=== PATIENT | female | born 1990 | race Caucasian/White ===

== ENCOUNTER 2024-08-31 09:22 | Emergency (ER) | payer OTHER, SELFPAY ==
[2024-08-31 09:33] VITALS: BP 127/89
[2024-08-31 10:08] VITALS: BMI 29.7
--- NOTE | 2024-08-31 10:08 | ED.GENMED ---
History of Present Illness
General
Chief Complaint: Heart Rate Problem
Source: patient
Exam Limitations: none
Time Seen by Provider: 08/31/24 09:47
Nursing documentation reviewed up to this point in time: agreed with
History of Present Illness
History of Present Illness:
pt is a 33 y/o F
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
here with elevated HR noticed last night around 9 pm
pt says she feels it racing and felt a little off/lightheaded throughout the night
sh edidn't sleep well
HR anywhere from 110-140
she says each time she'd almost fall asleep, she would jolt herself awake
pt had a little chest tighness throughotu the night
no pleuritic cp, sob, fever, infectious symptoms, cough, vomiting, diarrhea
no h/o thyroid disease
no anemia
no changes in diet
no recen tlong travel
no OCPs
lmp 2 weeks ago
is a single mother to 5 year old twins
Past History
Past History
ED Past Medical History: None and Other
ED Past Surgical History: None and Other
Social History
Tobacco: Smoker
Alcohol: None
Drug: None
Personal: Single
Living: with family
Employment: Employed
Review of Systems
Review of Systems
Allergies reviewed?: Yes
All Other Systems: Not applicable
Phy Exam
Physical Exam
Physical Exam:
GENERAL: Alert , in no apparent distress
EYE: pupils equal and reactive
NECK: Supple
ENT: o/p clr, mmm.
CARDIAC: Heart rate low 100s, no murmur, no edema
LUNGS: Clear breath sounds bilaterally, no acute respiratory distress, no wheezes/rales/rhonchi
ABDOMEN: Soft, without focal tenderness, no r/g, no cvat, normal bowel sounds
NEUROLOGICAL: Alert and oriented, no focal neuro deficits
SKIN: Warm and dry, skin intact.
MUSCULOSKELETAL: No edema, well perfused. neg jeri's sign
PSYCH: Normal and appropriate interaction.
Course
Orders/Labs/Results
Orders:
Orders
08/31/24
Electrocardiogram (*1) Stat
Reason for Study: Chest Pain
Comment: already done
08/31/24 09:27
Electrocardiogram (*1) Urgent
Reason for Study: Palpitations
EKG- Treatment ONCE
08/31/24 09:51
Test Result ONCE
08/31/24 09:58
0.9% Sodium Chloride 1000 ml [Nss] 1,000 ml IV BOLUS
08/31/24 10:45
Complete Blood Count/With Diff Urgent
Comprehensive Metabolic Panel Urgent
D-Dimer Urgent
HCG, Serum Qualitative Screen Urgent
Magnesium Urgent
TSH Reflex To Free T4 Urgent
Troponin I Urgent
Abnormal Lab Results
08/31/24
10:45
RBC 4.04 L 10^6/uL
(4.20-5.40)
Hct 36.2 L %
(37.0-47.0)
Absolute Neuts (auto) 7.0 H 10^3/uL
(1.4-6.5)
Absolute Monos (auto) 0.9 H 10^3/uL
(0.1-0.6)
Lymphocytes % 18.9 L %
(20.5-51.1)
08/31/24 10:45
08/31/24 10:45
Vital Signs
Initial and Last Documented VS:
Initial Vital Signs
Temp Pulse Resp BP Pulse Ox
36.8 C 105 16 127/89 98
08/31/24 09:33 08/31/24 09:33 08/31/24 09:33 08/31/24 09:33 08/31/24 09:33
Last Documented Vital Signs
Temp Pulse Resp BP Pulse Ox
36.8 C 94 21 109/67 100
08/31/24 09:33 08/31/24 12:45 08/31/24 12:45 08/31/24 12:00 08/31/24 12:45
MDM/Problems Addressed
Differential Diagnosis Includes:
palpitations, dehydration, stress, anxiety, thyroid
MDM/Problems Addressed:
33 y/o F
palpitaions since last night
110-140s
mild chest tighrtness
no sob
no syncope
no history of in the past
deniess drug/alcohol
single mother
under stress
no OCPs
sinus tach ekg no ischemia
stable bp
well appearing
no distress
unremarkable exam
neg trop, d dimer, normal electrolytes, not anemic, not
ivf given
hr improved to 80s pt feelsb kevin
d/c home
*Critical Care Note
Total Time (30-74mins, 75-104mins- exclusive of procedures): Not Applicable
ED Attending Note
-
Portions of this chart may have been created with voice recognition software.� Occasional wrong word or��sound alike� substitutions may have occurred due to the inherent limitations of voice recognition software.
Discharge Plan
Departure
Patient Disposition: Home (Routine Discharge)
Date of Disposition: 08/31/24
Time of Disposition: 11:46
Patient with high blood pressure during this ER visit?: No
Condition: Fair
Covid-19: Not Applicable
Discharge Problem:
Sinus tachycardia
Instructions: Palpitations (DC)
Prescriptions:
No Action
drospirenone-ethinyl estradiol [Ocella] 1 EACH tablet
1 ea PO DAILY
sulfamethoxazole-trimethoprim 800 MG/160 MG tablet
1 tab PO BID Qty: 14 0RF
ondansetron 4 MG tablet,disintegrating
4 mg PO Q8HPRN PRN (Reason: Nausea/Vomiting) Qty: 10 0RF
cefdinir 300 MG capsule
300 mg PO BID Qty: 14 0RF
cefdinir 300 mg capsule
300 mg PO BID Qty: 20 0RF
Referrals:
Arron Knott MD [Active] - Follow up in 1 week (cards)
Leonarda Lopez CRNP [Family Provider] -
Activity Restrictions/Additional Instructions:
Were not sure what is causing your palpitations but your heart rate is improved. You could have been mildly dehydrated or anxiety or stress could do it. Your electrolytes are okay and he had no sign of a blood clot or heart attack. Please reach
out to the flight engineer to schedule a visit for a Holter monitor. In the meantime eat and drink well, avoid caffeine, alcohol. Try to get good rest at night. Return for any concerns like passing out or repeat palpitations or heart rate elevation
that is not resolving, etc.
Interventions
Interventions:
*Risk Screen - Suicide Last Done: 08/31/24 09:33
*General Assessment Last Done: 08/31/24 10:11
*Neglect/Abuse Screening Last Done: 08/31/24 09:33
*ED- Fall Risk Assessment Last Done: 08/31/24 10:11
*ED COVID-19 Vaccine History Last Done: 08/31/24 10:11
*Nursing Disposition Last Done: 08/31/24 12:45
ED- Cardiac Assessment Last Done: 08/31/24 10:11
ED- Pulmonary Assessment Last Done: 08/31/24 10:11
Discharge Date and Time
Discharge Date/Time: 08/31/24 12:45
Print Language: HUNGARIAN
[2024-08-31] MEDS: NSS 1000 IV (10:46)
[2024-08-31 11:12] LABS: % Basophils 0.2 % (0-2); % Eosinophils 0.2 % (0-6); % Immature Granulocytes 0.3 % (0-0.5); % Lymphocytes 18.9 % (20.5-51.1); % Monocytes 9.1 % (1.7-9.3); % Neutrophils 71.3 % (42.2-75.2); Absolute Lymphocytes 1.8 10^3/uL (1.2-3.4); Absolute Monocytes 0.9 10^3/uL (0.1-0.6); Hematocrit 36.2 % (37.0-47.0); Hemoglobin 12.5 g/dL (12.0-16.0); Mean Corp Hgb Conc. 34.5 g/dL (33.0-37.0); Mean Corpuscular Hgb 30.9 pg (27.0-31.0); Mean Corpuscular Volume 89.6 fL (81.0-99.0); Mean Platelet Volume 8.8 fL (7.4-10.4); Nucleated Red Blood Cells % 0 %; Platelet Count 289 10^3/uL (130-400); Red Blood Cell Count 4.04 10^6/uL (4.20-5.40); Red Cell Dist. Width 12.6 % (11.5-14.5); White Blood Cell Count 9.8 10^3/uL (4.8-10.8)
[2024-08-31 11:18] LABS: D-Dimer 0.38 ug/mlFEU (0.00-0.50)
[2024-08-31 11:19] LABS: Troponin I < 0.012 ng/ml
[2024-08-31 11:25] LABS: HCG, Serum Qualitative Screen Negative
[2024-08-31 11:38] LABS: TSH Reflex To Free T4 0.69 uIU/ml (0.47-4.68)
[2024-08-31 11:43] VITALS: BP 117/74
[2024-08-31 11:48] LABS: ALT (SGPT) 29 U/L (0-35); AST (SGOT) 27 U/L (14-36); Albumin 4.3 g/dl (3.5-5.0); Alkaline Phosphatase 116 U/L (38-126); Blood Urea Nitrogen 8 mg/dl (7-17); Calcium 9.8 mg/dl (8.4-10.2); Carbon Dioxide 24 mmol/L (22-30); Chloride 106 mmol/L (98-107); Estimated Creatinine Clearance 98 ml/min; Glucose 95 mg/dl (70-99); Magnesium 2.2 mg/dl (1.6-2.3); Potassium 3.9 mmol/L (3.5-5.1); Sodium 139 mmol/L (135-145); Total Bilirubin 0.7 mg/dl (0.2-1.3); Total Protein 7.4 g/dl (6.3-8.2); eGFR > 60.00
[2024-08-31 12:00] VITALS: BP 109/67
== END 2024-08-31 12:45 | disposition home or self-care (01) ==
LOC: EMR 09:22
PROVIDERS: Physician Assistant; EMERGENCY PHYSICIAN Student in an Organized Health Care Education/Training Program; FAMILY PHYSICIAN Nurse Practitioner
DX: R00.0 Tachycardia, unspecified (principal); R42 Dizziness and giddiness; F17.200 Nicotine dependence, unspecified, uncomplicated
CPT/HCPCS: 96360; 99284; 80053; 83735; 84443; 84484; 84703; 85025; 85379; 93005

== ENCOUNTER → 2024-10-10 13:21 | Outpatient (REF) | payer OTHER, SELFPAY | LOC: RCS 13:21 | PROVIDERS: ATTENDING PHYSICIAN Nurse Practitioner | DX: R00.0 Tachycardia, unspecified (principal) | CPT/HCPCS: 93225; 93226 ==